=== PATIENT | male | born 1955 | race Caucasian/White ===

== ENCOUNTER → 2017-08-30 | Outpatient (CLI) | payer OTHER ==
--- NOTE | 2017-08-30 13:33 | RAD ---
HISTORY: Neck pain after fall Study: Three views cervical spine Comparison: None Findings: Normal cervical alignment. Vertebral body heights are preserved. Prevertebral soft tissues are normal . Spondylosis and degenerative disc space narrowing is seen at C5-C6 and C6-C7. The visualized odonto id process appears intact. No evidence of acute fracture or subluxation. IMPRESSION: 1. No acute osseous abnormality. Reported By:
== END ==
LOC: RAD 09:21
PROVIDERS: ATTEND Family Medicine
DX: Z91.81 History of falling (principal); M47.892 Other spondylosis, cervical region
CPT/HCPCS: 72040